=== PATIENT | female | born 1985 ===

== ENCOUNTER 2018-09-27 12:05 | Emergency (ER) | payer MEDICAID ==
[2018-09-27 12:24] VITALS: BMI 27.4
[2018-09-27] MEDS ORDERED: Sodium Chloride 0.9% 1,000 ML IV STA (12:28)
[2018-09-27 12:33] VITALS: RESP 18
[2018-09-27 12:54] LABS: URINE BILIRUBIN NEGATIVE (NEGATIVE); URINE BLOOD MODERATE (NEGATIVE); URINE GLUCOSE (UA) NEGATIVE (NEGATIVE); URINE LEUKOCYTE ESTERASE SMALL Leu/uL (NEGATIVE); URINE PROTEIN 100 mg/dL (<30 mg/dL); URINE UROBILINOGEN 0.2 E.U./dL (<1 E.U./dL)
[2018-09-27 12:56] LABS: URINE APPEARANCE SL CLOUDY (CLEAR); URINE COLOR YELLOW (YELLOW)
[2018-09-27 13:12] LABS: URINE RBC 15 - 20 /hpf (0-2); URINE WBC 15 - 20 /hpf (0-6)
[2018-09-27 13:13] LABS: URINE BACTERIA MOD /hpf
[2018-09-27 13:15] LABS: BASO # 0.01 K/mm3 (0.0-2.0); BASO % 0.1 % (0.0-3.0); GRAN # 12.66 (1.4-6.5); GRAN % 85.3 % (50.0-68.0); HEMOGLOBIN 14.5 g/dL (12.0-16.0); LYMPH # 1.6 (1.2-3.4); LYMPH % 10.6 % (22.0-35.0); MEAN CELL VOLUME 84.4 fl (80.0-105.0); MEAN CORPUSCULAR HEMOGLOBIN 28.6 pg (25.0-35.0); MEAN CORPUSCULAR HGB CONC 33.9 g/dl (31.0-37.0); MEAN PLATELET VOLUME 10.5 fl (7.0-11.0); MONO # 0.6 (0.1-0.6); RBC 5.07 10^6/uL (3.5-6.1); RED CELL DISTRIBUTION WIDTH 13.7 % (11.5-14.5); WHITE BLOOD COUNT 14.8 10^3/uL (4.5-11.0)
[2018-09-27 13:21] LABS: INR 1.05; PARTIAL THROMBOPLASTIN TIME 28.5 Seconds (25.1-36.5); PROTHROMBIN TIME 12.1 SECONDS (9.4-12.5)
[2018-09-27 13:23] LABS: ALB/GLOB RATIO 1.4 (1.1-1.8); ALBUMIN 4.7 g/dL (3.0-4.8); ALT/SGPT 26 U/L (7-56); AST/SGOT 20 U/L (14-36); BLOOD UREA NITROGEN 12 mg/dL (7-21); CALCIUM 10.2 mg/dL (8.4-10.5); GFR NON-AFRICAN AMERICAN > 60; LIPASE 43 U/L (23-300)
[2018-09-27] MEDS ORDERED: Iohexol 350 MG/100 ML VIAL ONE (13:30)
--- NOTE | 2018-09-27 14:33 | CT ---
Date of service: 09/27/2018 PROCEDURE: CT Abdomen and Pelvis with contrast HISTORY: RLQ pain COMPARISON: None. TECHNIQUE: Following the intravenous administration of iodinated contrast material, a CT examination of the abdomen and pelvis performed from the domes of the diaphragms to the symphysis pubis with reformatted datasets provided in axial, sagittal and coronal planes. Oral contrast was not administered as per referring physician request. Coronal and sagittal reformats were generated. Contrast dose: Omnipaque 300, 100 cc Radiation dose: Total exam DLP = 639.8 mGy-cm. This CT exam was performed using one or more of the following dose reduction techniques: Automated exposure control, adjustment of the mA and/or kV according to patient size, and/or use of iterative reconstruction technique. FINDINGS: LOWER THORAX: Unremarkable. LIVER: Unremarkable. No gross lesion or ductal dilatation. GALLBLADDER AND BILE DUCTS: Unremarkable. PANCREAS: Unremarkable. No gross lesion or ductal dilatation. SPLEEN: Unremarkable. ADRENALS: Unremarkable. No mass. KIDNEYS AND URETERS: No obstructive uropathy is appreciate bilaterally or suspicious solid renal mass. However, there is abnormal enhancement involving the wall of the right renal pelvis and the entire right ureter down to the ureter vessel junction. Consider potential expelled calculus with reactive changes at the right renal pelvis and right ureter or possible minimal obstructing loosing calculus at the right UV junction. Expelled calculus is likely given limited right hydroureter. Alternatively, there may be be right ureteritis on an infectious or inflammatory basis and further clinical correlation is recommended. VASCULATURE: Unremarkable. No aortic aneurysm. No aortic atherosclerotic calcification or mural plaque present. BOWEL: Unremarkable. No obstruction. No gross mural thickening. APPENDIX: Normal appendix. PERITONEUM: Unremarkable. No free fluid. No free air. LYMPH NODES: Unremarkable. No enlarged lymph nodes. BLADDER: Distended but otherwise unremarkable. REPRODUCTIVE: 1.6 cm right adnexal cyst with trace local adnexal fluid which may indicate partial rupture. BONES: No acute fracture. OTHER FINDINGS: None. IMPRESSION: 1. Limited right hydroureter with abnormal mural enhancement throughout the right ureter also involving the right renal pelvis of the right renal pelvis is not distended. No hydronephrosis. Consider possible expelled obstructing right ureteral calculus versus infectious or inflammatory etiology of mural thickening enhancement throughout the right ureter. Urinary bladder appears unremarkable. Left kidney is negative. 2. Negative appendix.
[2018-09-27] MEDS ORDERED: cefTRIAXone 1 gm 1 GM/100 ML BAG IVPB STA (14:39)
--- NOTE | 2018-09-27 14:45 | ED PDOC ---
Arrival/HPI - General Chief Complaint: Abdominal Pain Time Seen by Provider: 09/27/18 12:07 Historian: Patient - History of Present Illness Narrative History of Present Illness (Text): 09/27/18 14:42 33yo female with no pmhx who present with complaint of RLQ abdominal pain since last night with associated nausea. Describes pain as sharp and constant. Admits to urinary frequency. Denies vomiting, diarrhea, constipation, fever, chills, dysuria, hematemesis, melena, hematuria, back pain, sick contact, travel, any other complaint. Past Medical History - Provider Review Nursing Documentation Reviewed: Yes - Psychiatric Hx Substance Use: No - Surgical History Other/Comment: 3 normal delivery Family/Social History - Physician Review Nursing Documentation Reviewed: Yes Family/Social History: Unknown Family HX Smoking Status: Never Smoked Hx Alcohol Use: No Hx Substance Use: No Allergies/Home Meds Allergies/Adverse Reactions: Allergies No Known Allergies Allergy (Verified 09/27/18 12:24) Review of Systems - Physician Review All systems were reviewed & negative as marked: Yes - Review of Systems Constitutional: Normal Eyes: Normal ENT: Normal Respiratory: Normal Cardiovascular: Normal Gastrointestinal: Normal Genitourinary Female: Normal Musculoskeletal: Normal Skin: Normal Neurological: Normal Endocrine: Normal Hemo/Lymphatic: Normal Psychiatric: Normal Physical Exam Vital Signs Reviewed: Yes Vital Signs Temp Pulse Resp BP Pulse Ox 09/27/18 12:31 98.7 F 70 18 135/84 99 Temperature: Afebrile Blood Pressure: Normal Pulse: Regular Respiratory Rate: Normal Appearance: Positive for: Well-Appearing, Non-Toxic, Comfortable Pain Distress: None Mental Status: Positive for: Alert and Oriented X 3 - Systems Exam Head: Present: Atraumatic, Normocephalic Pupils: Present: PERRL Extroacular Muscles: Present: EOMI Conjunctiva: Present: Normal Mouth: Present: Moist Mucous Membranes Neck: Present: Normal Range of Motion Respiratory/Chest: Present: Clear to Auscultation, Good Air Exchange. No: Respiratory Distress, Accessory Muscle Use Cardiovascular: Present: Regular Rate and Rhythm, Normal S1, S2. No: Murmurs Abdomen: Present: Tenderness, Normal Bowel Sounds, Guarding (Voluntary), Other (Soft). No: Distention, Peritoneal Signs, Rebound, McBurney's Point Tender, Rovsing's Sign Present Back: Present: Normal Inspection Upper Extremity: Present: Normal Inspection. No: Cyanosis, Edema Lower Extremity: Present: Normal Inspection. No: Edema Neurological: Present: GCS=15, CN II-XII Intact, Speech Normal Skin: Present: Warm, Dry, Normal Color. No: Rashes Psychiatric: Present: Alert, Oriented x 3, Normal Insight, Normal Concentration Medical Decision Making ED Course and Treatment: 09/27/18 19:31 PT presented to ED for stated history. she was afebrile and hemodynamically stable. Labs was reviewed and leukocytosis and cystitis was noted Abdominal/pelvic Ct was ordered to r/o appendicitis Abdominal/pelvic CT IMPRESSION: 1. Limited right hydroureter with abnormal mural enhancement throughout the right ureter also involving the right renal pelvis of the right renal pelvis is not distended. No hydronephrosis. Consider possible expelled obstructing right ureteral calculus versus infectious or inflammatory etiology of mural thickening enhancement throughout the right ureter. Urinary bladder appears unremarkable. Left kidney is negative. 2. Negative appendix. PT was treated in ED with Rocephin and DC home with keflex Result was DW the pt and she was advised to f/u with her PMD TRT ED for worsening symptoms - Lab Interpretations Lab Results: PT 12.1 SECONDS (9.4-12.5) 09/27/18 12:48 INR 1.05 09/27/18 12:48 APTT 28.5 Seconds (25.1-36.5) 09/27/18 12:48 Total Bilirubin 0.6 mg/dL (0.2-1.3) 09/27/18 12:48 AST 20 U/L (14-36) 09/27/18 12:48 ALT 26 U/L (7-56) 09/27/18 12:48 Alkaline Phosphatase 96 U/L (38-126) 09/27/18 12:48 Total Protein 8.1 g/dL (5.8-8.3) 09/27/18 12:48 Albumin 4.7 g/dL (3.0-4.8) 09/27/18 12:48 Globulin 3.4 gm/dL 09/27/18 12:48 Albumin/Globulin Ratio 1.4 (1.1-1.8) 09/27/18 12:48 Lipase 43 U/L (23-300) 09/27/18 12:48 Urine Color Yellow (YELLOW) 09/27/18 12:28 Urine Appearance Sl cloudy (CLEAR) 09/27/18 12:28 Urine pH 7.0 (4.7-8.0) 09/27/18 12:28 Ur Specific [place] >= 1.030 (1.005-1.035) 09/27/18 12:28 Urine Protein 100 mg/dL (<30 mg/dL) H 09/27/18 12:28 Urine Glucose (UA) Negative mg/dL (NEGATIVE) 09/27/18 12:28 Urine Ketones Negative mg/dL (NEGATIVE) 09/27/18 12:28 Urine Blood Moderate (NEGATIVE) H 09/27/18 12:28 Urine Nitrate Positive (NEGATIVE) H 09/27/18 12:28 Urine Bilirubin Negative (NEGATIVE) 09/27/18 12:28 Urine Urobilinogen 0.2 E.U./dL (<1 E.U./dL) 09/27/18 12:28 Ur Leukocyte Esterase Small Rylee/uL (NEGATIVE) H 09/27/18 12:28 Urine RBC 15 - 20 /hpf (0-2) H 09/27/18 12:28 Urine WBC 15 - 20 /hpf (0-6) H 09/27/18 12:28 Ur Epithelial Cells 10 - 12 /hpf (0-5) H 09/27/18 12:28 Urine Bacteria Mod /hpf (NONE) 09/27/18 12:28 - RAD Interpretation Radiology Orders: 09/27/18 13:24 ABD & PELVIS IV CONTRAST ONLY [CT] Stat - Medication Orders Current Medication Orders: Ceftriaxone Sodium (Rocephin 1 Gram Ivpb) 1 gm in 100 mls @ 200 mls/hr IVPB STAT STA; Protocol Stop: 09/27/18 15:08 Discontinued Medications Famotidine (Pepcid) 20 mg IVP STAT STA Stop: 09/27/18 12:29 Last Admin: 09/27/18 12:59 Dose: 20 mg IVP Administration Document 09/27/18 12:59 PARESH (Rec: 09/27/18 12:59 PARESH [id number]) Charges for Administration # of IVP Administrations 1 Sodium Chloride (Sodium Chloride 0.9%) 1,000 mls @ 1,000 mls/hr IV .Q1H STA Stop: 09/27/18 13:27 Last Admin: 09/27/18 12:49 Dose: 1,000 mls/hr eMAR Start Stop Document 09/27/18 12:49 LA (Rec: 09/27/18 12:59 LA [id number]) Intravenous Solution Start Date 09/27/18 Start Time 12:59 End Date 09/27/18 End time 13:59 Total Infusion Time 60 Ondansetron HCl (Zofran Inj) 4 mg IVP STAT STA Stop: 09/27/18 12:29 Last Admin: 09/27/18 12:59 Dose: 4 mg IVP Administration Document 09/27/18 12:59 LA (Rec: 09/27/18 12:59 LA [id number]) Charges for Administration # of IVP Administrations 1 Disposition/Present on Arrival - Present on Arrival Any Indicators Present on Arrival: No History of DVT/PE: No History of Uncontrolled Diabetes: No Urinary Catheter: No History of Decub. Ulcer: No History Surgical Site Infection Following: None - Disposition Have Diagnosis and Disposition been Completed?: Yes Diagnosis: Cystitis, Abdominal pain Disposition: HOME/ ROUTINE Disposition Time: 15:00 Patient Plan: Discharge Condition: STABLE Discharge Instructions (ExitCare): Acute Cystitis (DC) Additional Instructions: Follow up with your Doctor Return to ED for any new or worsening symptoms Prescriptions: Cephalexin [Keflex] 500 mg PO TID #21 capsule Referrals: Tara Malagon MD [Medical Doctor] - Follow up with primary Forms: [employer] (Swedish)
[2018-09-27 15:06] VITALS: BP 124/61; PULSE 64; TEMP 98.6; O2SAT 100
== END 2018-09-27 15:39 | disposition home or self-care (01) ==
LOC: ED 12:05 → MERGE 12:05 → ED 15:39
DX: N30.90 Cystitis, unspecified without hematuria (principal); R10.31 Right lower quadrant pain
CPT/HCPCS: 74177; 80053; 81001; 81025; 83690; 83735; 85025; 85610; 85730; 87086; 87181; 96361; 96365; 96375; 99283; J0696; J2405; J7030; Q9967